=== PATIENT | male | born 1950 | race African-American/Black ===

== ENCOUNTER 2017-03-03 18:27 | Emergency (ER) | payer BC ==
[2017-03-03 18:31] VITALS: BP 137/77; PULSE 76; TEMP 98.2; BMI 25.8
--- NOTE | 2017-03-03 19:06 | PDOC ---
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 Patient reports that he has been doing yard work and possibly got something in his finger around his nail bed. Patient denies any numbness of finger or any fever or redness. A tiny hypopigmented area was noted on lateral aspect of nailbed right middle finger. He is not up-to-date with tetanus we'll update now. Timing/Duration: getting worse Severity: moderate (rt. middle finger around nail area) Associated Symptoms: reports: denies symptoms Past History - Past Medical History Allergies/Adverse Reactions: Allergies Allergy/AdvReac Type Severity Reaction Status Date / Time No Known Allergies Allergy Verified 03/03/17 18:31 Home Medications: Ambulatory Orders Amlodipine Besylate/Benazepril [Lotrel 10-40 mg Capsule] 1 each PO DAILY Tamsulosin HCl 0.4 mg PO DAILY 04/17/16 Mag Carb/Al Hydrox/Alginic AC [Gaviscon Liquid] 355 ml PO Q4H PRN #1 bottle 12/03 Pantoprazole Sodium [Protonix] 40 mg PO DAILY #90 tablet. 04/18/16 Cephalexin Monohydrate [Keflex -] 500 mg PO Q8H #20 capsule 03/03/17 GI Disorders: Yes (DIVERTICULAR DISEASE) HTN: Yes - Surgical History Abdominal Surgery: Yes (COLON RESECTION) - Psycho/Social/Smoking Cessation Hx Anxiety: No Suicidal Ideation: No Smoking Status: No Smoking History: Never smoked Have you smoked in the past 12 months: No Number of Cigarettes Smoked Daily: 0 If you are a former smoker, when did you quit?: 30 yrs ago Hx Alcohol Use: Yes (SOCIAL) Drug/Substance Use Hx: No Substance Use Type: None Review of Systems - Review of Systems Able to Perform ROS?: Yes Constitutional: No: Symptoms Reported HEENTM: No: Symptoms Reported Respiratory: No: Symptoms reported Cardiac (ROS): No: Symptoms Reported ABD/GI: No: Symptoms Reported : No: Symptoms Reported Musculoskeletal: No: Symptoms Reported Integumentary: Yes: Other (tenderness with hypopigmentation of skin around rt. middle finger nailbed medially ) Neurological: No: Symptoms reported *Physical Exam - Vital Signs Last Vital Signs Temp Pulse Resp BP Pulse Ox 98.2 F 76 20 137/77 96 03/03/17 18:28 03/03/17 18:28 03/03/17 18:28 03/03/17 18:28 03/03/17 18:28 - Physical Exam General Appearance: Yes: Appropriately Dressed Comments:: 03/03/17 19:05 radial pulse 4 + rt. Extremity: positive: Normal Capillary Refill, Normal Range of Motion (rt. middle finger), Tender (rt. middle finger around nailbed medially ) Integumentary: positive: Other (area of hypopigmentaion rt. middle finger medial nailbed) Neurologic: positive: Alert, Normal Response, Respond to painful stimul. negative: Numbness, Sensory Deficit (rt. 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 Patient reports that he has been doing yard work and possibly got something in his finger around his nail bed. Patient denies any numbness of finger or any fever or redness. A tiny hypopigmented area was noted on lateral aspect of nailbed right middle finger. He is not up-to-date with tetanus we'll update now. Rt. middle finger paronychium PLAN: digital block to rt. middle finger approx 8 cc using a 18 gauge needle lifted cuticle rt. middle finger laterally obtained small amount of grayish discharge keflex 500 mg po now than every 8 hrs for 7 days wound C & S rt. middle finger *DC/Admit/Observation/Transfer Diagnosis at time of Disposition: Paronychia Qualifiers: Laterality: right Qualified Code(s): L03.011 - Cellulitis of right finger - Discharge Dispostion Disposition: HOME Condition at time of disposition: Stable - Prescriptions Prescriptions: Cephalexin Monohydrate [Keflex -] 500 mg PO Q8H #20 capsule - Referrals Referrals: Chad Faria MD [Primary Care Provider] - - Patient Instructions Additional Instructions: Soak your right middle finger in warm salt water 8 ounces of water with half a teaspoon of salt Take Tylenol as needed as directed by sedimentationist for pain Follow-up with your primary care provider within the next few days for further evaluation apply band-Aid around finger until healed except at night when sleeping let air out and use gloves when doing yard work or any cleaning today your tetanus diphtheria and pertussis vaccine was updated Return to emergency room if symptoms worsen any fever or redness of finger or worsening pain patient voiced understanding of discharge instructions and all questions were answered
[2017-03-03] MEDS ORDERED: CEPHALEXIN MONOHYDRATE 500 MG CAPSULE (UD) PO ONE (19:33)
[2017-03-03] MEDS ORDERED: DIPHTH,PERTUSS(ACELL),TET 0.5 ML DISP.SYRIN IM ONE (19:33)
[2017-03-03] MEDS ORDERED: CEPHALEXIN MONOHYDRATE 500 MG CAPSULE (UD) ONE (19:46)
--- NOTE | 2017-03-07 12:06 | PDOC ---
Patient Follow-up (Call Back) - Post ED Follow - Up Chief Complaint: finger Condition at time of discharge: Stable Disposition at time of original discharge: HOME Reason for Call Back: Abnwl. Microbiology (organism resistan to keflex will place on bactrim) - Disposition Rx Needed: Yes (bactrim dc one tab BID for 7 days ) Additional Instructions/Notes: spoke with pt and the script has been transcribed to [facility] [address].
== END 2017-03-03 20:14 | disposition home or self-care (01) ==
LOC: JERFT 18:27
PROC: 0H9FXZZ Drainage of Right Hand Skin, External Approach (ICD-10-PCS; principal; 2017-03-03)
PROC: 3E0234Z Introduction of Serum, Toxoid and Vaccine into Muscle, Percutaneous Approach (ICD-10-PCS; 2017-03-03)
DX: L03.011 Cellulitis of right finger (principal); I10 Essential (primary) hypertension; N40.0 Benign prostatic hyperplasia without lower urinary tract symptoms
CPT/HCPCS: 87070; 87186; 87205; 90715; 99281-25

== ENCOUNTER 2018-11-07 13:45 | Emergency (ER) | payer BC ==
[2018-11-07 13:50] VITALS: BP 121/63; PULSE 82; TEMP 98.3; BMI 26.4
--- NOTE | 2018-11-07 15:36 | PDOC ---
History of Present Illness - General Chief Complaint: Head/Neck problem Stated Complaint: NECK/SHOULDER PAIN Time Seen by Provider: 11/07/18 14:51 History Source: Patient Exam Limitations: No Limitations Past History - Past Medical History Allergies/Adverse Reactions: Allergies Allergy/AdvReac Type Severity Reaction Status Date / Time No Known Allergies Allergy Verified 11/07/18 13:50 Home Medications: Ambulatory Orders Amlodipine Besylate/Benazepril [Lotrel 10-40 mg Capsule] 1 each PO DAILY Tamsulosin HCl 0.4 mg PO DAILY 04/17/16 Diazepam [Valium] 2.5 mg PO DAILY PRN #8 tablet MDD 2 11/07/18 COPD: No GI Disorders: Yes (DIVERTICULAR DISEASE) HTN: Yes - Surgical History Abdominal Surgery: Yes (COLON RESECTION) - Immunization History Immunization Up to Date: Yes - Suicide/Smoking/Psychosocial Hx Smoking Status: No Smoking History: Never smoked Have you smoked in the past 12 months: No Number of Cigarettes Smoked Daily: 0 If you are a former smoker, when did you quit?: 30 yrs ago Hx Alcohol Use: No Drug/Substance Use Hx: No Substance Use Type: None *Physical Exam - Vital Signs Last Vital Signs Temp Pulse Resp BP Pulse Ox 98.3 F 82 20 121/63 99 11/07/18 13:48 11/07/18 13:48 11/07/18 13:48 11/07/18 13:48 11/07/18 13:48 - Physical Exam General Appearance: No: Apparent Distress HEENT: positive: ROM Neck: positive: Decreased range of motion (Pain with turning neck to the left), Tender lateral (+Along L cervical paraveretebral muscles). negative: Rigid, Rigidity, Tender midline Respiratory/Chest: positive: Lungs Clear, Normal Breath Sounds. negative: Respiratory Distress Cardiovascular: positive: Regular Rhythm, Regular Rate, S1, S2. negative: Murmur Gastrointestinal/Abdominal: positive: Normal Bowel Sounds, Soft. negative: Tender, Distended, Guarding, Rebound Integumentary: positive: Normal Color Neurologic: positive: rn cvor II-XII NML intact, Fully Oriented, Alert, Normal Mood/ Affect, Normal Response, Motor Strength 5/5. negative: Numbness, Sensory Deficit Moderate Sedation - Procedure Monitoring Vital Signs: Procedure Monitoring Vital Signs Temperature 98.3 F 11/07/18 13:48 Pulse Rate 82 11/07/18 13:48 Respiratory Rate 20 11/07/18 13:48 Blood Pressure 121/63 11/07/18 13:48 O2 Sat by Pulse Oximetry (%) 99 11/07/18 13:48 Medical Decision Making - Medical Decision Making 68 y/o M hx of HTN presents requesting cortisone injection for chronic neck spasms since beginning of August. Pain started after doing some heavy work. Patient has been following up with his orthopedic doctor and PCP. Has tried Motrin 600 mg, Flexeril and Tizanidine which have not helped. Is also undergoing PT and has tried acupuncture without much relief either. States only warm compresses help with symptoms. His orthopedic doctor told him cortisone injection can help, but he can't do it and referred him to pain management doctor, who patient called yesterday, but appt is not until 3 weeks later. Denies numbness/tingling/weakness of extremities, sob, cp, n/v. Will send rx for Valium to help and refer to another pain specialist, Dr. Sy Andrade. 11/07/18 15:30 *DC/Admit/Observation/Transfer Diagnosis at time of Disposition: Muscle spasms of neck - Discharge Dispostion Disposition: HOME Condition at time of disposition: Stable - Prescriptions Prescriptions: Diazepam [Valium] 2.5 mg PO DAILY PRN #8 tablet MDD 2 PRN Reason: Muscle Spasms - Referrals Referrals: Chad Faria MD [Primary Care Provider] - 2 Days Sy Andrade MD [Staff Physician] - Call tomorrow - Patient Instructions Printed Discharge Instructions: DI for Chronic Neck Pain Additional Instructions: Thank you for choosing [facility]. It was a pleasure taking care of you. You may take Tylenol 650 mg or Motrin 600 mg every 4 hours by mouth as needed for mild to moderate pain. Take Motrin with food. Do not take more than 4000 mg of Tylenol in 1 day. Take Valium as needed for muscle spasms. This medication can also make you drowsy so please be cautious with driving or performing heavy physical work. You were referred to another pain management doctor who you may contact for further management of your neck spasms Return to the Emergency Department if your symptoms worsen or persist, you have fever, shortness of breath, chest pain, severe abdominal pain, vomiting, weakness of extremities (arms and/or legs), changes in walking or other concerning symptoms. - Post Discharge Activity
== END 2018-11-07 15:47 | disposition home or self-care (01) ==
LOC: JERFT 13:45
DX: M62.838 Other muscle spasm (principal); I10 Essential (primary) hypertension
CPT/HCPCS: 99281-25

== ENCOUNTER 2021-08-03 06:25 | Inpatient (IN) | payer BC, OTHER ==
[2021-08-03 06:43] VITALS: BMI 22.4
[2021-08-03 10:09] LABS: BASO % 2.4 % (0-2.0); EOS % 0.7 % (0-4.5); HEMOGLOBIN 16.8 GM/dL (11.7-16.9); LYMPH % 24.7 % (8-40); MEAN CELL VOLUME 94.2 fl (80-96); MEAN PLT VOLUME 7.9 fl (7.5-11.1); MONO % 13.7 % (3.8-10.2); NEUT % 58.5 % (42.8-82.8); PLATELET COUNT 178 10^3/uL (134-434); WHITE BLOOD COUNT 4.5 K/mm3 (4.0-10.0)
[2021-08-03 10:37] LABS: CHLORIDE 106 mmol/L (98-107); SODIUM 139 mmol/L (136-145)
[2021-08-03 10:40] LABS: ALBUMIN 3.6 g/dl (3.4-5.0); ANION GAP 10 MMOL/L (8-16); BLOOD UREA NITROGEN 14.7 mg/dL (7-18); CALCIUM 8.6 mg/dL (8.5-10.1); CO2 22 mmol/L (21-32); GLUCOSE,RANDOM 82 mg/dL (74-106)
[2021-08-03 10:42] LABS: CREATININE 1.2 mg/dL (0.55-1.3); SGOT/AST 73 U/L (15-37); SGPT/ALT 88 U/L (13-61)
[2021-08-03 10:45] LABS: ALK PHOS 78 U/L (45-117); BILIRUBIN,TOTAL 1.6 mg/dL (0.2-1); N-TERMINAL BNP 2844.7 pg/ml (5-125); PROTHROMBIN TIME (PATIENT) 12.3 SEC (9.7-13.0); TOT PROT 7.1 g/dl (6.4-8.2)
[2021-08-03 10:48] LABS: ACTIVATED PTT 29.4 SECONDS (25.2-36.5)
[2021-08-03] MEDS ORDERED: METOPROLOL TARTRATE 25 MG TABLET (FP) PO SCH (22:00)
[2021-08-04] MEDS ORDERED: METOPROLOL TARTRATE 25 MG TABLET (FP) ONE ×2 (00:06→00:07)
[2021-08-04] MEDS ORDERED: ENOXAPARIN NA (PORCINE) 80 MG/0.8 ML DISP.SYRIN SQ ONE (00:06)
[2021-08-04] MEDS: ENOXAPARIN NA (PORCINE) 80 MG/0.8 ML DISP.SYRIN SQ SCH ×4 (00:10→22:16)
[2021-08-04 07:20] LABS: BASO % 1.8 % (0-2.0); EOS % 1.1 % (0-4.5); HEMOGLOBIN 15.9 GM/dL (11.7-16.9); LYMPH % 39.8 % (8-40); MCH 33.4 pg (25.7-33.7); MCHC 35.4 g/dl (32.0-35.9); MEAN CELL VOLUME 94.4 fl (80-96); MEAN PLT VOLUME 8.4 fl (7.5-11.1); MONO % 14.3 % (3.8-10.2); PLATELET COUNT 178 10^3/uL (134-434); RBC 4.77 M/mm3 (4.00-5.60); RDW 13.2 % (11.9-15.9); WHITE BLOOD COUNT 4.6 K/mm3 (4.0-10.0)
[2021-08-04 07:40] LABS: ALBUMIN 3.4 g/dl (3.4-5.0); BLOOD UREA NITROGEN 18.7 mg/dL (7-18); CALCIUM 8.8 mg/dL (8.5-10.1); MAGNESIUM 2.1 mg/dL (1.8-2.4)
[2021-08-04 07:43] LABS: CREATININE 1.2 mg/dL (0.55-1.3)
[2021-08-04 07:45] LABS: BILIRUBIN,TOTAL 1.3 mg/dL (0.2-1); PHOSPHOROUS 3.1 mg/dL (2.5-4.9); TOT PROT 6.6 g/dl (6.4-8.2)
[2021-08-04] MEDS ORDERED: SODIUM CHLORIDE NASAL SPRAY 44 ML BOTTLE NS PRN (08:13)
[2021-08-04] MEDS ORDERED: PNEUMOC 13-VAL CONJ-DIP CRM/PF 0.5 ML DISP.SYRIN IM ONE (08:30)
[2021-08-04] MEDS: TAMSULOSIN HCL 0.4 MG CAP PO SCH (08:56)
[2021-08-04] MEDS: LISINOPRIL 20 MG TABLET PO SCH ×2 (08:56→09:35)
[2021-08-04] MEDS: METOPROLOL TARTRATE 25 MG TABLET (FP) PO SCH ×3 (08:57→22:16)
[2021-08-04] MEDS: FUROSEMIDE 20 MG TABLET (FP) PO SCH (09:37)
[2021-08-04] MEDS ORDERED: LISINOPRIL 20 MG TABLET PO SCH (10:00)
[2021-08-04] MEDS ORDERED: PATIENT'S OWN MEDICATION (NON-FORMULARY) (Amlodipine Besylate/Benazepril [Amlodipine-Benaz PO SCH (10:00)
[2021-08-04] MEDS ORDERED: amLODIPine BESYLATE 5 MG TABLET (FP) PO SCH (10:00)
[2021-08-04] MEDS ORDERED: LORazepam 1 MG TABLET PO ONE (14:00)
[2021-08-04] MEDS ORDERED: METOPROLOL TARTRATE 25 MG TABLET (FP) PO ONE (14:00)
[2021-08-05] MEDS ORDERED: METOPROLOL TARTRATE 5 MG/5 ML VIAL IVPUSH ONE (08:46)
[2021-08-05] MEDS: FUROSEMIDE 20 MG TABLET (FP) PO SCH (09:05)
[2021-08-05] MEDS: LISINOPRIL 20 MG TABLET PO SCH (09:05)
[2021-08-05] MEDS: TAMSULOSIN HCL 0.4 MG CAP PO SCH (09:05)
[2021-08-05] MEDS ORDERED: METOPROLOL TARTRATE 5 MG/5 ML VIAL IVPUSH PRN (09:14)
[2021-08-05] MEDS: APIXABAN 5 MG TABLET PO SCH ×2 (09:39→21:44)
[2021-08-05] MEDS ORDERED: METOPROLOL TARTRATE 50 MG TABLET (FP) PO SCH (10:00)
[2021-08-05] MEDS ORDERED: PNEUMOC 13-VAL CONJ-DIP CRM/PF 0.5 ML DISP.SYRIN IM ONE (10:00)
[2021-08-05] MEDS: guaiFENesin 200 MG/10 ML 10 ML UNIT-DOSE CUPS PO PRN ×2 (12:12→19:32)
[2021-08-06 07:12] LABS: CALCIUM 8.9 mg/dL (8.5-10.1)
[2021-08-06 07:13] LABS: ALBUMIN 3.3 g/dl (3.4-5.0); BLOOD UREA NITROGEN 28.4 mg/dL (7-18)
[2021-08-06 07:16] LABS: CREATININE 1.3 mg/dL (0.55-1.3)
[2021-08-06 07:17] LABS: BILIRUBIN,TOTAL 1.5 mg/dL (0.2-1); TOT PROT 6.8 g/dl (6.4-8.2)
[2021-08-06] MEDS: TAMSULOSIN HCL 0.4 MG CAP PO SCH (08:38)
[2021-08-06] MEDS: LISINOPRIL 20 MG TABLET PO SCH (09:04)
[2021-08-06] MEDS: APIXABAN 5 MG TABLET PO SCH ×2 (09:05→21:06)
[2021-08-06] MEDS: guaiFENesin 200 MG/10 ML 10 ML UNIT-DOSE CUPS PO PRN ×2 (09:23→21:06)
[2021-08-06] MEDS ORDERED: ACETAMINOPHEN 325 MG TABLET (FP) PO PRN (10:37)
[2021-08-07] MEDS: APIXABAN 5 MG TABLET PO SCH (09:19)
[2021-08-07] MEDS: TAMSULOSIN HCL 0.4 MG CAP PO SCH (09:19)
[2021-08-07] MEDS: LISINOPRIL 20 MG TABLET PO SCH (09:19)
[2021-08-07 09:21] VITALS: BP 135/80; PULSE 59; TEMP 98
== END 2021-08-07 14:37 | disposition home or self-care (01) | DRG 310 ==
LOC: JER 06:25 → JERBED 15:36 → J4S 08-04 00:26
PROVIDERS: ADMIT Internal Medicine
DX: I48.91 Unspecified atrial fibrillation (principal); N40.0 Benign prostatic hyperplasia without lower urinary tract symptoms; I10 Essential (primary) hypertension; R94.5 Abnormal results of liver function studies; E78.5 Hyperlipidemia, unspecified; I11.0 Hypertensive heart disease with heart failure; I50.9 Heart failure, unspecified; K82.8 Other specified diseases of gallbladder; N28.1 Cyst of kidney, acquired
CPT/HCPCS: 36415; 71045-TC-FY; 76705-TC; 80053; 80061; 82550; 82728; 83036; 83615; 83735; 83880; 84100; 84436; 84443; 84484; 85025; 85610; 85730; 86140; 87324; 87449; 90670; 93005; 93010; 93306-TC; 99285-25; C9803; U0003; U0005

== ENCOUNTER 2021-12-22 04:35 | Day surgery (SDC) | payer BC, OTHER ==
[2021-12-20 16:06] VITALS: BMI 22.2
[2021-12-22 10:11] VITALS: TEMP 98
[2021-12-22 11:16] VITALS: BP 141/87; PULSE 57
== END 2021-12-22 10:45 | disposition home or self-care (01) ==
LOC: JASU-ENDO 04:35
PROVIDERS: ATTEND Internal Medicine Gastroenterology
PROC: 0DB68ZX Excision of Stomach, Via Natural or Artificial Opening Endoscopic, Diagnostic (ICD-10-PCS; 2021-12-22)
PROC: 0DB28ZX Excision of Middle Esophagus, Via Natural or Artificial Opening Endoscopic, Diagnostic (ICD-10-PCS; 2021-12-22)
PROC: 0DB48ZX Excision of Esophagogastric Junction, Via Natural or Artificial Opening Endoscopic, Diagnostic (ICD-10-PCS; 2021-12-22)
PROC: 0DB98ZX Excision of Duodenum, Via Natural or Artificial Opening Endoscopic, Diagnostic (ICD-10-PCS; principal; 2021-12-22 10:00)
DX: K29.50 Unspecified chronic gastritis without bleeding (principal); K44.9 Diaphragmatic hernia without obstruction or gangrene
CPT/HCPCS: 88305-TC; 88342-TC

== ENCOUNTER 2022-12-05 10:09 | Observation (INO) | payer BC, OTHER ==
[2022-12-05 10:31] VITALS: BMI 25.0
[2022-12-05] MEDS ORDERED: MECLIZINE HCL 25 MG TABLET (FP) PO ONE (11:12)
[2022-12-05 11:43] LABS: BASO % 0.7 % (0-2.0); EOS % 0.6 % (0-4.5); HEMATOCRIT 48.5 % (35.4-49); HEMOGLOBIN 16.1 GM/dL (11.7-16.9); LYMPH % 29.6 % (8-40); MCH 30.9 pg (25.7-33.7); MCHC 33.1 g/dl (32.0-35.9); MEAN CELL VOLUME 93.3 fl (80-96); MEAN PLT VOLUME 8.6 fl (7.5-11.1); MONO % 6.4 % (3.8-10.2); NEUT % 62.7 % (42.8-82.8); PLATELET COUNT 306 10^3/uL (134-434); RDW 13.9 % (11.9-15.9); WHITE BLOOD COUNT 5.5 K/mm3 (4.0-10.0)
[2022-12-05 12:10] LABS: CALCIUM 9.8 mg/dL (8.5-10.1)
[2022-12-05 12:11] LABS: ALBUMIN 3.7 g/dl (3.4-5.0); BLOOD UREA NITROGEN 24.2 mg/dL (7-18); MAGNESIUM 2.1 mg/dL (1.8-2.4)
[2022-12-05 12:14] LABS: CREATININE 1.5 mg/dL (0.55-1.3)
[2022-12-05 12:16] LABS: BILIRUBIN,TOTAL 0.5 mg/dL (0.2-1); TOT PROT 6.8 g/dl (6.4-8.2)
[2022-12-05] MEDS ORDERED: SODIUM CHLORIDE 0.9% 500 ML INFUS.BAG IV ONE (13:55)
[2022-12-05 19:24] LABS: INR 1.29 (0.83-1.09); PROTHROMBIN TIME (PATIENT) 14.9 SEC (9.7-13.0)
[2022-12-05 19:27] LABS: ACTIVATED PTT 35.4 SECONDS (25.2-36.5)
[2022-12-05] MEDS ORDERED: SODIUM CHLORIDE 1,000 ML IV SCH (19:30)
[2022-12-05] MEDS ORDERED: MECLIZINE HCL 12.5 MG TABLET PO SCH (22:00)
[2022-12-06] MEDS ORDERED: LEVOTHYROXINE NA 25 MCG TABLET (FP) PO SCH (07:00)
[2022-12-06] MEDS ORDERED: TAMSULOSIN HCL 0.4 MG CAP PO SCH (08:30)
[2022-12-06 08:39] LABS: CALCIUM 9.2 mg/dL (8.5-10.1)
[2022-12-06 08:40] LABS: ALBUMIN 3.7 g/dl (3.4-5.0); BLOOD UREA NITROGEN 18.7 mg/dL (7-18); MAGNESIUM 2.1 mg/dL (1.8-2.4)
[2022-12-06 08:43] LABS: CREATININE 1.2 mg/dL (0.55-1.3); PHOSPHOROUS 2.6 mg/dL (2.5-4.9)
[2022-12-06 08:44] LABS: BILIRUBIN,TOTAL 0.6 mg/dL (0.2-1); TOT PROT 6.8 g/dl (6.4-8.2)
[2022-12-06] MEDS ORDERED: LISINOPRIL 20 MG TABLET PO SCH (10:00)
[2022-12-06] MEDS ORDERED: FENOFIBRIC ACID 135 MG CAP PO SCH (10:00)
[2022-12-06] MEDS ORDERED: BEXAROTENE PO SCH (10:00)
[2022-12-06] MEDS ORDERED: LISINOPRIL 10 MG TABLET PO SCH (11:15)
[2022-12-06] MEDS ORDERED: FINASTERIDE 5 MG TABLET (FP) PO SCH (13:30)
[2022-12-06 14:54] VITALS: BP 150/82; PULSE 72; RESP 21; TEMP 98.2
[2022-12-06] MEDS ORDERED: RIVAROXABAN 20 MG TABLET PO SCH (18:00)
== END 2022-12-06 18:19 | disposition home or self-care (01) ==
LOC: JER 10:09 → JERBED 15:17 → J4W 19:27 → JERBED 19:27 → J4W 21:08
PROVIDERS: ADMIT Internal Medicine; ATTEND Internal Medicine
PROC: 3E0337Z Introduction of Electrolytic and Water Balance Substance into Peripheral Vein, Percutaneous Approach (ICD-10-PCS; principal; 2022-12-05)
PROC: 3E0337Z Introduction of Electrolytic and Water Balance Substance into Peripheral Vein, Percutaneous Approach (ICD-10-PCS; 2022-12-05)
DX: E78.5 Hyperlipidemia, unspecified (principal); R42 Dizziness and giddiness; C85.90 Non-Hodgkin lymphoma, unspecified, unspecified site; N40.0 Benign prostatic hyperplasia without lower urinary tract symptoms; I48.0 Paroxysmal atrial fibrillation; Z79.01 Long term (current) use of anticoagulants; I95.1 Orthostatic hypotension; R79.89 Other specified abnormal findings of blood chemistry; I10 Essential (primary) hypertension; K57.92 Diverticulitis of intestine, part unspecified, without perforation or abscess without bleeding; Z87.891 Personal history of nicotine dependence
CPT/HCPCS: 0241U-QW; 36415; 70450-TC; 70551-TC; 71045-TC-FY; 80053; 82962; 83036; 83735; 84100; 84484; 85025; 85610; 85730; 93005; 93010; 93880-TC; 97116-GP; 97162-GP; 99285-25; G0378

== ENCOUNTER 2023-07-17 11:31 | Emergency (ER) | payer BC, OTHER ==
[2023-07-17 11:39] VITALS: TEMP 97.6; BMI 25.0
[2023-07-17] MEDS ORDERED: ACETAMINOPHEN 1000 MG/100 ML BAG IVPB ONE (12:03)
[2023-07-17] MEDS ORDERED: dilTIAZem HCL 50 MG/10 ML - 10 ML VIAL IVPUSH ONE (12:03)
[2023-07-17] MEDS ORDERED: dilTIAZem HCL 50 MG/10 ML - 10 ML VIAL ONE (12:18)
[2023-07-17] MEDS ORDERED: ACETAMINOPHEN INJECTION 100 ML IVPB ONE (12:18)
[2023-07-17 13:09] LABS: BASO % 0.5 % (0-2.0); EOS % 2.1 % (0-4.5); HEMATOCRIT 45.8 % (35.4-49); HEMOGLOBIN 15.1 GM/dL (11.7-16.9); LYMPH % 19.6 % (8-40); MCH 30.1 pg (25.7-33.7); MEAN CELL VOLUME 91.4 fl (80-96); MEAN PLT VOLUME 8.5 fl (7.5-11.1); MONO % 8.5 % (3.8-10.2); NEUT % 69.3 % (42.8-82.8); PLATELET COUNT 338 10^3/uL (134-434); RBC 5.01 M/mm3 (4.00-5.60); RDW 15.8 % (11.9-15.9); WHITE BLOOD COUNT 7.2 K/mm3 (4.0-10.0)
[2023-07-17 13:19] LABS: POTASSIUM 3.9 mmol/L (3.5-5.1)
[2023-07-17 13:21] LABS: CALCIUM 9.2 mg/dL (8.5-10.1)
[2023-07-17 13:22] LABS: ALBUMIN 3.6 g/dl (3.4-5.0); BLOOD UREA NITROGEN 13.3 mg/dL (7-18); MAGNESIUM 1.8 mg/dL (1.8-2.4)
[2023-07-17 13:26] LABS: BILIRUBIN,TOTAL 0.9 mg/dL (0.2-1); TOT PROT 7.6 g/dl (6.4-8.2)
[2023-07-17] MEDS ORDERED: oxyCODONE HCL 5 MG TABLET PO ONE (13:54)
[2023-07-17 14:03] LABS: INR 1.77 (0.83-1.09); PROTHROMBIN TIME (PATIENT) 20.4 SEC (9.7-13.0)
[2023-07-17] MEDS ORDERED: oxyCODONE HCL 5 MG TABLET ONE (14:10)
[2023-07-17 16:37] VITALS: BP 152/96; PULSE 91; RESP 16
== END 2023-07-17 16:37 | disposition home or self-care (01) ==
LOC: JER 11:31
PROC: 3E033NZ Introduction of Analgesics, Hypnotics, Sedatives into Peripheral Vein, Percutaneous Approach (ICD-10-PCS; principal; 2023-07-17)
PROC: 3E033GC Introduction of Other Therapeutic Substance into Peripheral Vein, Percutaneous Approach (ICD-10-PCS; 2023-07-17)
DX: M79.604 Pain in right leg (principal); I48.91 Unspecified atrial fibrillation
CPT/HCPCS: 36415; 71045-TC-FY; 73630-TC-RT-FY; 73700-TC-RT; 80053; 83735; 84484; 85025; 85610; 93005; 93010; 93971-RT; 99285-25

== ENCOUNTER 2024-05-31 22:35 | Emergency (ER) | payer BC, OTHER ==
[2024-05-31 22:43] VITALS: BMI 25.0
[2024-05-31 23:33] LABS: BASO % 0.9 % (0-2.0); EOS % 2.5 % (0-4.5); HEMATOCRIT 44.3 % (35.4-49); HEMOGLOBIN 15.1 GM/dL (11.7-16.9); LYMPH % 35.6 % (8-40); MCH 31.6 pg (25.7-33.7); MCHC 34.1 g/dl (32.0-35.9); MEAN CELL VOLUME 92.7 fl (80-96); MEAN PLT VOLUME 7.5 fl (7.5-11.1); PLATELET COUNT 234 10^3/uL (134-434); RBC 4.77 M/mm3 (4.00-5.60); RDW 15.2 % (11.9-15.9); WHITE BLOOD COUNT 5.7 K/mm3 (4.0-10.0)
[2024-05-31 23:35] LABS: VENOUS BASE EXCESS -4.1 mmol/L (-2-2); VENOUS O2 SATURATION 74.8 % (70-80); VENOUS PCO2 40.3 mmHg (38-52); VENOUS PH 7.342 (7.310-7.410)
[2024-05-31 23:40] LABS: INR 1.04 (0.83-1.09); PROTHROMBIN TIME (PATIENT) 11.9 SEC (9.7-13.0)
[2024-05-31 23:53] LABS: POTASSIUM 3.6 mmol/L (3.5-5.1)
[2024-05-31 23:55] LABS: ALBUMIN 3.2 g/dl (3.4-5.0); BLOOD UREA NITROGEN 21.5 mg/dL (7-18); CALCIUM 8.9 mg/dL (8.5-10.1); MAGNESIUM 1.9 mg/dL (1.8-2.4)
[2024-05-31 23:58] LABS: CREATININE 1.2 mg/dL (0.55-1.3)
[2024-06-01] LABS: BILIRUBIN,TOTAL 0.6 mg/dL (0.2-1); TOT PROT 6.3 g/dl (6.4-8.2)
[2024-06-01 01:15] LABS: EPI CELLS 2 /uL (0-25.1); HYALINE CASTS 0 /uL (0-3.1); PH,URINE 5.5 (5.0-8.0); URINE APPEARANCE CLEAR; URINE BACTERIA 1 /uL (0-1359); URINE BILIRUBIN NEGATIVE (NEGATIVE); URINE COLOR YELLOW; URINE GLUCOSE (UA) NEGATIVE (NEGATIVE); URINE KETONE NEGATIVE (NEGATIVE); URINE LEUK ESTERASE TRACE (NEGATIVE); URINE NITRITE NEGATIVE (NEGATIVE); URINE PROTEIN NEGATIVE (NEGATIVE); URINE RBC 10 /uL (0-23.9); URINE WBC 24 /uL (0-25.8)
[2024-06-01] MEDS ORDERED: AZITHROMYCIN 500 MG TABLET ONE (06:06)
[2024-06-01] MEDS: AZITHROMYCIN 500 MG TABLET PO ONE (06:13)
[2024-06-01 06:26] VITALS: RESP 20
[2024-06-01 06:28] VITALS: BP 110/72; PULSE 68; TEMP 98.6
== END 2024-06-01 06:27 | disposition home or self-care (01) ==
LOC: JER 22:35
DX: R06.02 Shortness of breath (principal); Z20.822 Contact with and (suspected) exposure to COVID-19
CPT/HCPCS: 0241U-QW; 36415; 71045-TC-FY; 71250-TC; 80053; 81003; 82803; 83605; 83735; 84484; 85025; 85379; 85610; 85730; 87040; 87086; 93005; 93010; 99285-25